=== PATIENT | male | born 1985 ===

== ENCOUNTER 2022-02-18 11:00 | Emergency (ER) | payer SELFPAY ==
[2022-02-18 11:12] VITALS: BP 179/111
== END 2022-02-18 18:32 | disposition left against medical advice (07) ==
LOC: ED 11:00
DX: S61.402A Unspecified open wound of left hand, initial encounter (principal); Z53.21 Procedure and treatment not carried out due to patient leaving prior to being seen by health care provider; X58.XXXA Exposure to other specified factors, initial encounter; Y93.89 Activity, other specified; Y92.89 Other specified places as the place of occurrence of the external cause; Y99.8 Other external cause status